=== PATIENT | female | born 1965 | race Caucasian/White ===

== ENCOUNTER → 2017-07-19 | Outpatient (CLI) | payer BC ==
--- NOTE | 2017-07-19 13:31 | MR ---
EXAMINATION TYPE: MR knee LT wo con DATE OF EXAM: 07/19/2017 1:08 PM COMPARISON: NONE HISTORY: lt knee pain TECHNIQUE: Multiplanar, multiecho imaging of the left knee is performed without IV contrast. FINDINGS: There is mild edema surrounding the knee. There is a moderate joint effusion. 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 There is grade I to II c hondromalacia involving the lateral patellar facet as well as the medial and lateral femoral condyles . The medial meniscus is unremarkable. The anterior horn of the lateral meniscus as well as a body horn junction is abnormal. There is a complex tear. This is undisplaced. The root of the anterior meniscu s appears to extend to find of the intercondylar notch and I suspect it is injured. Both the anterior and posterior cruciate ligaments are intact. Both the medial and lateral collateral ligament complexes are intact. The iliotibial band inserts nor lyubov upon Gerdy's tubercle. The popliteus tendon and muscle appear normal. There is some pseudocystic change in the notch between the tibial spines and also in the tibial metap hysis. No other osseous lesion is seen. Both the patellar and quadriceps tendons are intact. IMPRESSION: 1. CHONDROMALACIA DESCRIBED. 2. COMPLEX TEAR OF THE ANTERIOR HORN AND BODY HORN JUNCTION OF THE LATERAL MENISCUS WITH POTENTIAL IN JURY TO THE ANTERIOR ROOT OF THE MENISCUS. 3. LARGE JOINT EFFUSION.
== END | disposition home or self-care (01) ==
LOC: RADMRIMAIN 12:16
PROVIDERS: ATTEND Orthopaedic Surgery
DX: S83.272A Complex tear of lateral meniscus, current injury, left knee, initial encounter (principal); M94.262 Chondromalacia, left knee

== ENCOUNTER → 2017-07-28 | Outpatient (CLI) | payer BC ==
[2017-07-28 10:23] LABS: Basophils % (A) 1 %; CH 30.1; CHCM 32.1; Eosinophils # (A) 0.2 k/uL (0-0.7); Eosinophils % (A) 4 %; HCT 38.4 % (34.0-46.0); HDW 2.21; HGB 12.6 gm/dL (11.4-16.0); Luc # (Auto) 0.09; Luc % (Auto) 2; Lymphocytes # (A) 1.8 k/uL (1.0-4.8); Lymphocytes % (A) 31 %; MCH 30.8 pg (25.0-35.0); MCHC 32.7 g/dL (31.0-37.0); MCV 94.1 fL (80.0-100.0); Monocytes # (A) 0.2 k/uL (0-1.0); Monocytes % (A) 4 %; Neutrophils # (A) 3.5 k/uL (1.3-7.7); Neutrophils % (A) 59 %; RBC 4.08 m/uL (3.80-5.40); RDW 13.2 % (11.5-15.5); WBC 5.9 k/uL (3.8-10.6); WBC (Perox) 5.98
[2017-07-28 10:42] LABS: Potassium 4.5 mmol/L (3.5-5.1)
== END | disposition home or self-care (01) ==
LOC: LABPAT 09:36
PROVIDERS: ATTEND Orthopaedic Surgery
DX: Z01.812 Encounter for preprocedural laboratory examination (principal); M23.91 Unspecified internal derangement of right knee
CPT/HCPCS: 80051; 85025

== ENCOUNTER → 2017-10-18 | Outpatient (CLI) | payer BC | END | disposition home or self-care (01) | LOC: LABPAT 10:33 | PROVIDERS: ATTEND Orthopaedic Surgery | CPT/HCPCS: 87070 ==

== ENCOUNTER → 2020-09-19 | Outpatient (CLI) | payer MEDICARE, BC ==
[2020-09-19 15:34] VITALS: BP 136/85; PULSE 56; RESP 18
--- NOTE | 2020-09-19 16:27 | P.GSHP ---
History of Present Illness H&P Date: 09/19/20 Chief Complaint: abnormal left breast mammogram Elizabeth is a 55 year old white female seen in consultation for DR. Carter area of calcification in her left breast. She had a routine screening mammogram performed on which diagnostic left breast mammogram was recommended. No lesions of concern were noted in the right breast. The left breast she was noted to have some microcalcifications of concern for which stereotactic core biopsy was recommended. She does not feel any lumps masses or nodules of concern in either breast. She is not complaining of any breast pain. She is not complaining of any nipple discharge or skin changes. She has no history of any trauma, infection, or surgery on either breast. 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 Hypothyroidism Social History: randa: stopped smoking in 1983 alcohol: occasional drugs: none - Constitutional Constitutional: Denies chills, Denies fever - EENT Eyes: denies blurred vision, denies pain Ears: bilateral: tinnitus, deny: decreased hearing Ears, nose, mouth and throat: Reports headache, Denies sore throat - Breasts Breasts: bilateral: as per HPI - Cardiovascular Cardiovascular: Reports shortness of breath, Denies chest pain - Respiratory Respiratory: Denies cough, Denies 7 - Gastrointestinal Gastrointestinal: Reports constipation, Reports diarrhea, Denies abdominal pain, Denies nausea, Denies vomiting - Genitourinary (Female) Genitourinary: Denies dysuria, Denies hematuria - Menstruation Menstruation: Reports postmenopausal - Musculoskeletal Comment: DJD, osteoarthritis - Integumentary Integumentary: Denies pruritus, Denies rash - Neurological Neurological: Reports weakness, Denies numbness - Psychiatric Psychiatric: Reports anxiety, Reports depression - Endocrine Comment: Esme's/hypothyroid - Hematologic/Lymphatic Comment: none - Allergic/Immunologic Allergic/Immunologic: Reports as per HPI Past Medical History Past Medical History: Hyperlipidemia, Musculoskeletal Disorder Additional Past Medical History / Comment(s): TINNITIS. HX RT KNEE INJURY, ONGOING PROB. History of Any Multi-Drug Resistant Organisms: None Reported Past Surgical History: Orthopedic Surgery, Tonsillectomy, Tubal Ligation, Uterine Ablation Additional Past Surgical History / Comment(s): EXC KIDNEY STONE. UTERINE ABLATION X2. RT KNEE SCOPE X 2, LT KNEE SCOPE, TOTAL RIGHT KNEE ARTHROPLASTY Past Anesthesia/Blood Transfusion Reactions: No Reported Reaction Past Psychological History: No Psychological Hx Reported Smoking Status: Former smoker Past Alcohol Use History: Rare Additional Past Alcohol Use History / Comment(s): smoked 1-2 years <1ppd quit 1983 Past Drug Use History: None Reported - Past Family History Father Family Medical History: Cancer Medications and Allergies Home Medications Medication Instructions Recorded Confirmed Type Cholecalciferol [Vitamin D3 (25 5,000 unit PO DAILY 08/19/17 09/19/20 History Mcg = 1000 Iu)] Escitalopram [Lexapro] 20 mg PO DAILY 08/19/17 09/19/20 History Gabapentin [Neurontin] 400 mg PO TID 08/19/17 09/19/20 History Multivitamins, Thera [Multivitamin 1 tab PO DAILY 08/19/17 09/19/20 History (formulary)] Cyanocobalamin (Vitamin B-12) 1,000 mcg PO DAILY 09/16/20 09/19/20 History [Vitamin B-12] Levothyroxine Sodium [Synthroid] 100 mcg PO DAILY 09/16/20 09/19/20 History Cheney-3 Fatty Acids/Fish Oil [Fish 1 each PO DAILY 09/16/20 09/19/20 History Oil 1,000 mg Softgel] Allergies Allergy/AdvReac Type Severity Reaction Status Date / Time adhesive Allergy Rash/Hives Verified 09/16/20 10:21 Surgical - Exam Vital Signs Pulse Resp BP Pulse Ox 56 L 18 136/85 97 09/19/20 15:29 09/19/20 15:29 09/19/20 15:29 09/19/20 15:29 BMI 49.4 - General obese - Eyes normal ocular movement - ENT no hearing loss - Neck no masses, trachea midline - Respiratory normal expansion, normal respiratory effort, clear to auscultation - Cardiovascular Rhythm: regular Heart Sounds: normal: S1, S2 - Abdomen Abdomen: soft - Integumentary normal turgor - Neurologic no disoriented, no combative - Musculoskeletal normal gait, normal posture - Psychiatric oriented to time, oriented to person, oriented to place, speech is normal, memory intact Breast exam: Bra: 42D inspection: bilateral grade 3 ptosis palpation: right breast: Multiple positional exam fibrocystic changes, no dominant masses or nodules of concern Right axilla: No adenopathy of concern Left breast: Multiple positional exam fibrocystic changes, particularly attention to the central medial portion of the breast does not reveal any palpable lesion Left axilla: No adenopathy of concern Results Mammogram results reviewed Assessment and Plan Assessment: Impression: 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 Left breast stereotactic core biopsy 2. Medical management of medical conditions Risk and benefits of procedure discussed with the patient. She understands and wishes to proceed. Risks include but are not limited to bleeding, infection, reaction to the anesthetic. The lesion results were to be discordant and possible resection in the operating room may be recommended. Additionally alternatives such as watchful waiting or resection in the operating room are discussed but not recommended. Cc: Dr. Carter encounter 30 minutes, > 50% of time spent in planning and counselling
== END | disposition home or self-care (01) ==
LOC: WWCWWP 14:59
PROVIDERS: ATTEND Surgery
DX: Z53.9 Procedure and treatment not carried out, unspecified reason (principal)

== ENCOUNTER → 2020-09-25 | Day surgery (SDC) | payer BC ==
--- NOTE | 2020-09-25 08:31 | P.PCN ---
Date of Procedure: 09/25/20 Preoperative Diagnosis: Mammographic abnormality/microcalcifications of concern central medial aspect of the left breast Postoperative Diagnosis: Same Procedure(s) Performed: Stereotactic core biopsy left breast Anesthesia: local Surgeon: Archana Vora Pathology: other (Breast tissue) Condition: stable Disposition: same day Indications for Procedure: Microcalcifications of concern left breast central medial aspect Operative Findings: Radiograph of specimen reveals microcalcifications of concern present Description of Procedure: The patient is a 55-year-old white female who was noted to have microcalcifications of concern in the mid central portion of the left breast. Stereotactic core biopsy was recommended. Risks and benefits of the procedure were discussed with the patient. These include but are not limited to bleeding, infection, reaction to the anesthetic. Alternatives such as watchful waiting or resection in the operating room were discussed but not recommended. Patient understands and wishes to proceed. The patient was taken to stereotactic core biopsy wound. A perch mender film was obtained. CC from above approach was utilized. The area of concern was identified. The lesion was targeted. The breast was prepped using Betadine. 20 mL of 1% lidocaine was used to anesthetize the area of concern. A 9-gauge vacuum-assisted core rotating biopsy needle was driven to the correct coordinates. The needle was fired. Post fire film indicated needle to be in the correct location. 12 specimens were obtained. Radiograph of the specimen revealed the area of concern had been sampled. A secure marked top hat clip was left in place. The patient tolerated the procedure in stable condition. The specimen was sent to pathology. The patient will follow with Dr. Cortez next week.
[2020-09-25 08:41] VITALS: RESP 16
[2020-09-25 08:51] VITALS: BP 113/76; PULSE 54; TEMP 97.9
--- NOTE | 2020-09-25 16:02 | MM ---
EXAMINATION TYPE: MG stereo VAD BX LT DATE OF EXAM: 09/25/2020 COMPARISON: Prior mammogram 08/27/2020 CLINICAL HISTORY: Abnormal mammogram TECHNIQUE: Stereotactic guided core biopsy of left breast. FINDINGS: The procedure of stereotactic guided core biopsy was explained to the patient. Benefits, alternatives, and risks were discussed. An informed consent was then obtained. [facility]. , Dr. Diego Ponce performed the remainder of the procedure. A vacuum assisted biopsy gun was used to obtain multiple core samples. The patient tolerated the procedure well without any immediate complication. The patient was kept in the radiology department for short stay after the procedure and then discharged home in stable condition. Targeted calcifications are identified in specimen mammogram. Post biopsy mammogram shows the clip to appear in satisfactory position relative to the targeted area of concern on the preprocedure images. IMPRESSION: SUCCESSFUL, UNCOMPLICATED STEREOTACTIC GUIDED CORE BIOPSY OF AREA OF CONCERN IN THE left BREAST, FULL PATHOLOGY RESULTS TO FOLLOW. Pathology Results: High Risk LEFT BREAST, STEREOTACTIC CORE BIOPSY: Focal atypical ductal hyperplasia (ADH) in a background of fibrocystic changes including sclerosing adenosis and columnar cell change with calcifications, cysts and fibrosis. Recommendation Surgical consult of the left breast. ENRIKE
== END ==
LOC: RADMAMWWP 07:05
PROVIDERS: ATTEND Surgery
DX: N60.92 Unspecified benign mammary dysplasia of left breast (principal); N60.22 Fibroadenosis of left breast; N60.32 Fibrosclerosis of left breast
CPT/HCPCS: 88305; 19081; A4648; J2001

== ENCOUNTER → 2020-10-02 | Outpatient (CLI) | payer BC ==
[2020-10-02 15:05] VITALS: BP 143/85; PULSE 61; RESP 18; TEMP 97.9
--- NOTE | 2020-10-02 15:38 | P.PN ---
Subjective Progress Note Date: 10/02/20 Principal diagnosis: atypical hyperplasia Elizabeth is a 55 year old white female seen in consultation for DR. Carter area of calcification in her left breast. She had a routine screening mammogram performed on which diagnostic left breast mammogram was recommended. No lesions of concern were noted in the right breast. The left breast she was noted to have some microcalcifications of concern for which stereotactic core biopsy was recommended. She does not feel any lumps masses or nodules of concern in either breast. She is not complaining of any breast pain. She is not complaining of any nipple discharge or skin changes. She has no history of any trauma, infection, or surgery on either breast. She underwent a stero biopsy on 09-25-20. Her pathology reveled atypical ductal hyperplasia. This is in the upper inner aspect of the left breast. 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 Hypothyroidism Social History: randa: stopped smoking in 1983 alcohol: occasional drugs: none - Constitutional Constitutional: Denies chills, Denies fever - EENT Eyes: denies blurred vision, denies pain Ears: bilateral: tinnitus, deny: decreased hearing Ears, nose, mouth and throat: Reports headache, Denies sore throat - Breasts Breasts: bilateral: as per HPI - Cardiovascular Cardiovascular: Reports shortness of breath, Denies chest pain - Respiratory Respiratory: Denies cough, Denies 7 - Gastrointestinal Gastrointestinal: Reports constipation, Reports diarrhea, Denies abdominal pain, Denies nausea, Denies vomiting - Genitourinary (Female) Genitourinary: Denies dysuria, Denies hematuria - Menstruation Menstruation: Reports postmenopausal - Musculoskeletal Comment: DJD, osteoarthritis - Integumentary Integumentary: Denies pruritus, Denies rash - Neurological Neurological: Reports weakness, Denies numbness - Psychiatric Psychiatric: Reports anxiety, Reports depression - Endocrine Comment: Esme's/hypothyroid - Hematologic/Lymphatic Comment: none - Allergic/Immunologic Allergic/Immunologic: Reports as per HPI Objective - Vital Signs Vital signs: Vital Signs Temp 97.9 F 10/02/20 15:02 Pulse 61 10/02/20 15:02 Resp 18 10/02/20 15:02 BP 143/85 10/02/20 15:02 Pulse Ox 97 10/02/20 15:02 Intake & Output 10/01/20 10/02/20 10/02/20 18:59 06:59 18:59 Weight 120.656 kg - Exam BMI 48.7 - Constitutional General appearance: Present: obese - EENT Eyes: Present: EOMI ENT: Present: hearing grossly normal - Neck Neck: Present: normal ROM - Respiratory Respiratory: bilateral: CTA - Cardiovascular Rhythm: regular Heart sounds: normal: S1, S2 - Gastrointestinal General gastrointestinal: Present: soft - Integumentary Integumentary: Present: normal turgor - Musculoskeletal Musculoskeletal: Present: gait normal - Psychiatric Psychiatric: Present: A&O x's 3 - Additional findings Additional findings: breast exam: BRA: 42D inspection: left breast stero biopsy site clean and dry, bilateral grade 2/3 ptosis palpation: right breast: Multi-positional exam no dominant masses or nodules of concern fibrocystic changes Right axilla: No adenopathy of concern Left breast: Multi-positional exam fibrocystic changes, no dominant masses or nodules of concern Left axilla: No adenopathy of concern Assessment and Plan Assessment: Impression: 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 Needle localization excisional biopsy area of atypia left core biopsy site, possible onco-plastic tissue transfer, possible mastopexy incision CC: Dr. Carter encounter 15 minutes > 50% of time in planning and counselling
== END | disposition home or self-care (01) ==
LOC: WWCWWP 14:39
PROVIDERS: ATTEND Surgery
DX: Z53.9 Procedure and treatment not carried out, unspecified reason (principal)

== ENCOUNTER → 2020-11-27 | Outpatient (CLI) | payer MEDICARE, BC ==
[2020-11-27 20:55] LABS: T4, Free (Free Thyroxine) 1.2 ng/dL (0.80-1.80)
== END | disposition home or self-care (01) ==
LOC: LABWHC1 13:16
PROVIDERS: ATTEND Internal Medicine
DX: E06.3 Autoimmune thyroiditis (principal); E55.9 Vitamin D deficiency, unspecified
CPT/HCPCS: 36415; 82306; 84439; 84443

== ENCOUNTER → 2020-12-05 | Outpatient (CLI) | payer MEDICARE, BC ==
[2020-12-05 09:09] VITALS: BP 144/89; PULSE 58; RESP 18; TEMP 98
--- NOTE | 2020-12-05 09:24 | P.PN ---
Subjective Progress Note Date: 12/05/20 Principal diagnosis: atypical hyperplasia atypical hyperplasia Elizabeth is a 55 year old white female seen in consultation for DR. Carter regarding an area of calcification in her left breast. She had a routine screening mammogram performed on for which diagnostic left breast mammogram was recommended. No lesions of concern were noted in the right breast. The left breast she was noted to have some microcalcifications of concern for which stereotactic core biopsy was recommended. She did not feel any lumps masses or nodules of concern in either breast. She was not complaining of any breast pain. She was not complaining of any nipple discharge or skin changes. She had no history of any trauma, infection, or surgery on either breast. She underwent a stero biopsy on 09-25-20. Her pathology reveled atypical ductal hyperplasia. This is in the upper inner aspect of the left breast. 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 Hypothyroidism Social History: randa: stopped smoking in 1983 alcohol: occasional drugs: none - Constitutional Constitutional: Denies chills, Denies fever - EENT Eyes: denies blurred vision, denies pain Ears: bilateral: tinnitus, deny: decreased hearing Ears, nose, mouth and throat: Reports headache, Denies sore throat - Breasts Breasts: bilateral: as per HPI - Cardiovascular Cardiovascular: Reports shortness of breath, Denies chest pain - Respiratory Respiratory: Denies cough, - Gastrointestinal Gastrointestinal: Reports constipation, Reports diarrhea, Denies abdominal pain, Denies nausea, Denies vomiting - Genitourinary (Female) Genitourinary: Denies dysuria, Denies hematuria - Menstruation Menstruation: Reports postmenopausal - Musculoskeletal Comment: DJD, osteoarthritis - Integumentary Integumentary: Denies pruritus, Denies rash - Neurological Neurological: Reports weakness, Denies numbness - Psychiatric Psychiatric: Reports anxiety, Reports depression - Endocrine Comment: Esme's/hypothyroid - Hematologic/Lymphatic Comment: none - Allergic/Immunologic Allergic/Immunologic: Reports as per HPI Objective - Vital Signs Vital signs: Vital Signs Temp 98.0 F 12/05/20 09:07 Pulse 58 L 12/05/20 09:07 Resp 18 12/05/20 09:07 BP 144/89 12/05/20 09:07 Pulse Ox 99 12/05/20 09:07 Intake & Output 12/04/20 12/05/20 12/05/20 18:59 06:59 18:59 Weight 123.377 kg - Exam BMI 49.7 - Constitutional General appearance: Present: obese - EENT Eyes: Present: EOMI ENT: Present: hearing grossly normal - Neck Neck: Present: normal ROM - Respiratory Respiratory: bilateral: CTA - Cardiovascular Rhythm: regular Heart sounds: normal: S1, S2 - Gastrointestinal General gastrointestinal: Present: normal bowel sounds, soft - Integumentary Integumentary: Present: normal turgor - Musculoskeletal Musculoskeletal: Present: gait normal - Psychiatric Psychiatric: Present: A&O x's 3, appropriate affect, intact judgment & insight - Additional findings Additional findings: Bresaet exam: BRA: 42D inspection: bilateral grade 2/3 ptosis palpation: right breast: multipositional exam no dominant masses or nodules of concern, fibrocystic changes Right axilla: No adenopathy of concern Left breast: Multiple positional exam no dominant masses or nodules of concern Left axilla: No adenopathy of concern Assessment and Plan Assessment: Impression: DJD and back Osteoarthritis Estimated stress disorder Esme's Hypothyroidism Atypical hyperplasia on core biopsy of the left breast Plan: 1. Needle localization excisional biopsy area of atypia at the core biopsy site left breast, possible radical plastic tissue transfer, possible mastopexy incision CC: Dr. Carter Risks and benefits of the procedure discussed with the patient and she wishes to proceed risk include but are not limited to bleeding, infection, reaction to the anesthetic. There is also a risk that the area of concern would not be adequately sampled and this will need to be repeated as the localization needle could move. encounter 15 minutes, > 50% of time in planning and counselling
== END | disposition home or self-care (01) ==
LOC: WWCWWP 08:57
PROVIDERS: ATTEND Surgery
DX: Z53.9 Procedure and treatment not carried out, unspecified reason (principal)

== ENCOUNTER 2020-12-30 09:19 | Day surgery (SDC) | payer MEDICARE, BC ==
[2020-12-26 09:42] VITALS: BMI 50.3
[~2020-12-30 09:19] MED LIST: DEXAMETHASONE SOD PHOSPHATE 4 MG/ML 1 ML VIAL IV ONE; HEPARIN SODIUM,PORCINE 5,000 UNIT/ML 1 ML VIAL SQ PRN; HYDROmorphone 0.5 MG/0.5 ML SYRINGE IVP PRN; LACTATED RINGERS 1,000 ML IV SCH; MIDAZOLAM 2 MG/2 ML VIAL IV PRN; ONDANSETRON 4 MG/2 ML VIAL IVP ONE; Pre Op ABX Message 1 EACH MISC MISCELLANE ONE; SCOPOLAMINE 1.5MG/72HR PATCH TRANSDERM ONE
[2020-12-30] MEDS ORDERED: ALPRAZolam 0.5 MG TAB ONE (09:59)
[2020-12-30] MEDS ORDERED: LIDOCAINE 1% (10MG/ML) FOR IV START INTRADERMA ONE (10:20)
[2020-12-30 10:26] VITALS: RESP 16
[2020-12-30] MEDS ORDERED: LIDOCAINE 1% INJ 10MG/ML (20 ML MDV) SQ ONE ×4 (11:08→13:08)
[2020-12-30] MEDS ORDERED: PROPOFOL 10 MG/ML 20 ML VIAL IV ONE (11:46)
[2020-12-30] MEDS ORDERED: fentaNYL (PF) 50 MCG/ML 2 ML AMP ONE (11:46)
[2020-12-30] MEDS ORDERED: ALBUTEROL HFA INHALER INHALATION ONE (11:46)
[2020-12-30] MEDS ORDERED: SUCCINYLCHOLINE CHLORIDE 100 MG/5 ML SYR IV ONE (11:46)
[2020-12-30] MEDS ORDERED: LIDOCAINE 1% INJ 10MG/ML (20 ML MDV) ONE (11:46)
[2020-12-30] MEDS ORDERED: MIDAZOLAM 2 MG/2 ML VIAL ONE (11:46)
--- NOTE | 2020-12-30 12:56 | MM ---
EXAMINATION TYPE: MG pre op needle loc LT, MG surgical specimen LT DATE OF EXAM: 12/30/2020 COMPARISON: Stereo biopsy September 25, 2020 and older studies. CLINICAL HISTORY: Focal ADH on biopsy September 25, 2020 TECHNIQUE: Needle localization with wire placement and surgical excision of area of concern in the le ft breast. FINDINGS: The procedure of needle localization with wire placement and than surgical excision was exp lained to the patient. Benefits, alternatives, and risks were discussed. An informed consent was th en obtained. The shortest pathway for procedure was chosen. Shortest pathway was medial approach. The overlying s kin was prepped and draped in usual sterile fashion. Lidocaine was used as anesthetic into the skin a nd subcutaneous tissue up to the level of area of concern. A 7 cm needle was used. It was placed vi a a medial approach under mammographic guidance. Subsequent 90 degrees mammogram show the needle to be in satisfactory position relative to the targeted area. At this point, wire was placed and the ne edle was withdrawn. The wire was fixed to patient's skin. Images were marked for surgeon. The patient tolerated the procedure well without any immediate complication. The patient was kept in the radiology department for short stay after the procedure and then taken to surgery for surgical e xcision. Targeted biopsy clip and wire are identified in specimen mammogram. The patient was kept in hospital for short stay after the procedure and then discharged home in stable condition. IMPRESSION: Successful, uncomplicated needle localization with wire placement and surgical excision o f targeted biopsy clip in the left breast, full pathology results to follow.
--- NOTE | 2020-12-30 13:20 | P.OP ---
Date of Procedure: 12/30/20 Preoperative Diagnosis: atypia on core biopsy of left breast Postoperative Diagnosis: same Procedure(s) Performed: needle localization excisional biopsy left breast area of atypia, mastopexy, onco-plastic tissue transfer 47 cm Anesthesia: YOHANAA Surgeon: Archana Vora Estimated Blood Loss (ml): 8 IV fluids (ml): 400 Pathology: other (breast tissue) Condition: stable Disposition: same day Indications for Procedure: atypia on core biopsy of left breast Operative Findings: dense breast tissue Description of Procedure: This is a 55-year-old white female who was noted to have atypia on core biopsy of her left breast. Needle localization and excision was recommended. Approach to this was a mastopexy incision. Preoperatively the patient was taken to the radiology department where needle localization of an area of concern was performed. The patient was then brought to the preoperative area where skin markings were placed for a mastopexy incision. The apex of the crescent was approximately 2-1/2 cm above the areolar. This was at the meridian. The patient was taken to the operating room and following induction of anesthesia the left breast was prepped and draped in a sterile fashion. The skin markings for the crescent mastopexy were again evaluated. The skin in this area was then de-epithelialized. The breast tissue was entered through this crescent. The dissection was performed in the plane between the subcutaneous tissue and the breast tissue to the area of the localizing needle. This was brought into the wound. The tissue was grasped using an Allis clamp. Ci rcumferential resection of the tissue was performed around the needle. The specimen was painted for orientation. A radiograph revealed the area of concern had been removed. Superior and inferior pillars of tissue were dissected and mobilized. Superiorly the tissue was 4 cm x 2 cm. Inferiorly the tissue was 5 cm x 3 cm. The cavity where the lesion was resected was 4 cm x 6 cm. This was a total of 47 cm2 of mobilization. The wound was examined for hemostasis. After this was secured titanium clips were placed. The superior and inferior pillars were brought together and secured using 3-0 Vicryl suture. The subcutaneous tissues were closed using 3-0 Vicryl suture. The skin was closed using a 4-0 Monocryl. Steri-Strips were applied. The patient tolerated the procedure in stable condition. All instrument and sponge counts were correct at the end of the case.
--- NOTE | 2020-12-30 13:22 | P.DS ---
Providers Attending physician: Archana Vora Primary care physician: Alpesh Carter Plan - Discharge Summary Discharge Rx Participant: Yes New Discharge Prescriptions: No Action Gabapentin [Neurontin] 400 mg PO TID Escitalopram [Lexapro] 20 mg PO HS Cholecalciferol [Vitamin D3 (25 Mcg = 1000 Iu)] 5,000 unit PO DAILY Multivitamins, Thera [Multivitamin (formulary)] 1 tab PO DAILY Cyanocobalamin (Vitamin B-12) [Vitamin B-12] 1,000 mcg PO DAILY [place]-3 Fatty Acids/Fish Oil [Fish Oil 1,000 mg Softgel] 1 each PO DAILY Levothyroxine Sodium [Unithroid] 112 mcg PO QAM Discharge Medication List Cholecalciferol [Vitamin D3 (25 Mcg = 1000 Iu)] 5,000 unit PO DAILY 08/19/17 [History] Escitalopram [Lexapro] 20 mg PO HS 08/19/17 [History] Gabapentin [Neurontin] 400 mg PO TID 08/19/17 [History] Multivitamins, Thera [Multivitamin (formulary)] 1 tab PO DAILY 08/19/17 [History] Cyanocobalamin (Vitamin B-12) [Vitamin B-12] 1,000 mcg PO DAILY 09/16/20 [History] [place]-3 Fatty Acids/Fish Oil [Fish Oil 1,000 mg Softgel] 1 each PO DAILY 09/16/20 [History] Levothyroxine Sodium [Unithroid] 112 mcg PO QAM 12/26/20 [History] Follow up Appointment(s)/Referral(s): Archana Vora MD [STAFF PHYSICIAN] - 1 Week Activity/Diet/Wound Care/Special Instructions: do not drive for 24 hours or if taking narcotic pain medication may shower after 48 hours wear bra at all times Discharge Disposition: HOME SELF-CARE
[2020-12-30 13:42] VITALS: TEMP 97
[2020-12-30] MEDS ORDERED: HYDROcodone/APAP 5-325MG 1 EACH TAB PO ONE (14:34)
[2020-12-30] MEDS ORDERED: HYDROcodone/APAP 5-325MG 1 EACH TAB ONE (14:35)
[2020-12-30 15:01] VITALS: BP 136/80; PULSE 66
== END 2020-12-30 15:11 | disposition home or self-care (01) ==
LOC: RADMAMWWP 09:19
PROVIDERS: ATTEND Surgery
DX: N60.12 Diffuse cystic mastopathy of left breast (principal); N62 Hypertrophy of breast; M19.90 Unspecified osteoarthritis, unspecified site; E03.9 Hypothyroidism, unspecified; F43.10 Post-traumatic stress disorder, unspecified; E06.3 Autoimmune thyroiditis; E66.01 Morbid (severe) obesity due to excess calories; Z79.890 Hormone replacement therapy; Z79.899 Other long term (current) drug therapy; Z87.891 Personal history of nicotine dependence; Z80.0 Family history of malignant neoplasm of digestive organs; Z98.51 Tubal ligation status; Z87.442 Personal history of urinary calculi; Z96.651 Presence of right artificial knee joint; Z98.890 Other specified postprocedural states; Z91.048 Other nonmedicinal substance allergy status; Z68.42 Body mass index [BMI] 45.0-49.9, adult
CPT/HCPCS: 19125; 88305; 88307; 76098; 19281; J2250; J1644; J1100; J2405; J2001; J3010; J0330; J2704

== ENCOUNTER → 2021-01-08 | Outpatient (CLI) | payer BC ==
[2021-01-08 17:01] VITALS: BP 139/86; PULSE 77; RESP 18; TEMP 98
--- NOTE | 2021-01-08 17:32 | P.PN ---
Progress Note - Text Progress Note Date: 01/08/21 Elizabeth is a 55 year old white female status post left breast needle localization biopsy on 12-30-20. Her pathology was benign. She has no complaints related to the surgery. Pathology revealed hemorrhagic biopsy site change with focal fibrocystic change, columnar cell change, focal microcalcification, and usual ductal hyperplasia. Negative for in situ or invasive cancer. Physical examination: Lungs: Clear Heart: Regular rate and rhythm Incision: Clean and dry Impression/plan: 1. Repeat left breast mammogram in 6 months with physician examined that time 2. Patient has asymmetry related to the left breast surgery which was done to rule out malignancy and would like to have asymmetry procedure performed on the right breast. Cc: Dr. Carter
== END | disposition home or self-care (01) ==
LOC: WWCWWP 16:58
PROVIDERS: ATTEND Surgery
DX: N60.12 Diffuse cystic mastopathy of left breast (principal); Z98.890 Other specified postprocedural states; R92.0 Mammographic microcalcification found on diagnostic imaging of breast; N62 Hypertrophy of breast

== ENCOUNTER → 2021-03-27 | Outpatient (CLI) | payer MEDICARE, BC ==
[2021-03-27 23:03] LABS: T4, Free (Free Thyroxine) 1.7 ng/dL (0.80-1.80)
== END | disposition home or self-care (01) ==
LOC: LABWHC1 10:48
PROVIDERS: ATTEND Internal Medicine
DX: E06.3 Autoimmune thyroiditis (principal)
CPT/HCPCS: 36415; 84439; 84443

== ENCOUNTER → 2021-07-08 | Outpatient (CLI) | payer BC ==
--- NOTE | 2021-07-08 09:37 | MM ---
Reason for exam: history of benign breast biopsy. Last mammogram was performed 10 months ago. History: Patient has history of high-risk lesion on a previous biopsy at age 55. Benign MG pre op needle loc LT of the left breast, December 30, 2020. High risk MG stereo VAD BX LT of the left breast, September 25, 2020. Physical Findings: Nurse did not find any significant physical abnormalities on exam. MG 3D Diag Mammo W/Cad LT CC and MLO view(s) were taken of the left breast. Prior study comparison: August 27, 2020, left breast mammogram, performed at [facility]. August 22, 2020, mammogram, performed at [facility]. May 31, 2018, mammogram, performed at [facility]. There are scattered fibroglandular densities. Post operative changes left breast. No significant new findings when compared with previous films. These results were verbally communicated with the patient and result sheet given to the patient on 07/08/21. ASSESSMENT: Benign, BI-RAD 2 RECOMMENDATION: Routine screening mammogram of both breasts in 3 months. Back on schedule for August 2021.
== END | disposition home or self-care (01) ==
LOC: RADMAMWWP 07:41
PROVIDERS: ATTEND Surgery
DX: R92.8 Other abnormal and inconclusive findings on diagnostic imaging of breast (principal)
CPT/HCPCS: 77061; 77065

== ENCOUNTER → 2021-07-16 | Outpatient (CLI) | payer BC ==
[2021-07-16 10:57] VITALS: BP 132/86; PULSE 60; RESP 18; TEMP 98
--- NOTE | 2021-07-16 11:18 | P.PN ---
Subjective Progress Note Date: 07/16/21 Principal diagnosis: Fibrocystic breast changes/atypical hyperplasia left breast atypical hyperplasia status post biopsy on 12-30-20 Elizabeth is a 55 year old white female seen in consultation for DR. Carter regarding an area of calcification in her left breast. She had a routine s creening mammogram performed on for which diagnostic left breast mammogram was recommended. No lesions of concern were noted in the right breast. The left breast she was noted to have some microcalcifications of concern for which stereotactic core biopsy was recommended. She did not feel any lumps masses or nodules of concern in either breast. She was not complaining of any breast pain. She was not complaining of any nipple discharge or skin changes. She had no history of any trauma, infection, or surgery on either breast. She underwent a stero biopsy on 09-25-20. Her pathology reveled atypical ductal hyperplasia. This is in the upper inner aspect of the left breast. She underwent a needle local excisional biopsy of the left breast and 2921. This was negative for in situ or invasive carcinoma. The [place] [address]. This was felt to be benign BIRADS 2. She does not feel any lumps masses or nodules of concern in either breast. 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 Hypothyroidism Social History: nicotene: stopped smoking in 1983 alcohol: occasional drugs: none - Constitutional Constitutional: Denies chills, Denies fever - EENT Eyes: denies blurred vision, denies pain Ears: bilateral: tinnitus, deny: decreased hearing Ears, nose, mouth and throat: Reports headache, Denies sore throat - Breasts Breasts: bilateral: as per HPI - Cardiovascular Cardiovascular: Reports shortness of breath, Denies chest pain - Respiratory Respiratory: Denies cough, - Gastrointestinal Gastrointestinal: Reports constipation, Reports diarrhea, Denies abdominal pain, Denies nausea, Denies vomiting - Genitourinary (Female) Genitourinary: Denies dysuria, Denies hematuria - Menstruation Menstruation: Reports postmenopausal - Musculoskeletal Comment: DJD, osteoarthritis - Integumentary Integumentary: Denies pruritus, Denies rash - Neurological Neurological: Reports weakness, Denies numbness - Psychiatric Psychiatric: Reports anxiety, Reports depression - Endocrine Comment: Esme's/hypothyroid - Hematologic/Lymphatic Comment: none - Allergic/Immunologic Allergic/Immunologic: Reports as per HPI Objective - Vital Signs Vital signs: Vital Signs Temp 98.0 F 07/16/21 10:53 Pulse 60 07/16/21 10:53 Resp 18 07/16/21 10:53 BP 132/86 07/16/21 10:53 Pulse Ox 95 07/16/21 10:53 Intake & Output 07/15/21 07/16/21 07/16/21 18:59 06:59 18:59 Weight 122.47 kg - Exam BMI 49.4 - Constitutional General appearance: Present: cooperative - EENT Eyes: Present: EOMI ENT: Present: hearing grossly normal - Neck Neck: Present: normal ROM - Respiratory Respiratory: bilateral: CTA - Cardiovascular Rhythm: regular Heart sounds: normal: S1, S2 - Integumentary Integumentary: Present: normal turgor - Musculoskeletal Musculoskeletal: Present: gait normal - Psychiatric Psychiatric: Present: A&O x's 3, appropriate affect, intact judgment & insight - Additional findings Additional findings: Breast Exam: BRA: 42 C Inspection: Well-healed scar left breast from prior surgery Palpation: Right breast: Multiple positional exam fibrocystic changes no dominant masses or nodules of concern Right axilla: No adenopathy of concern left breast: Multiple positional exam fibrocystic changes no dominant masses or nodules of concern/well-healed scar from prior surgery Left axilla: No adenopathy of concern Assessment and Plan Assessment: Impression: 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 Patient to have right breast mammogram in August/she will have repeat bilateral mammogram in 1 year to both breasts on the same schedule 2. follow up after mammogram CC: Dr. Carter
== END | disposition home or self-care (01) ==
LOC: WWCWWP 10:47
PROVIDERS: ATTEND Surgery
DX: Z53.9 Procedure and treatment not carried out, unspecified reason (principal)

== ENCOUNTER → 2021-08-25 | Outpatient (CLI) | payer MEDICARE, BC ==
--- NOTE | 2021-08-25 12:36 | MM ---
Reason for exam: screening (asymptomatic). Last mammogram was performed 2 months ago. History: Patient has history of high-risk lesion on a previous biopsy at age 55. Benign MG pre op needle loc LT of the left breast, December 30, 2020. High risk MG stereo VAD BX LT of the left breast, September 25, 2020. Physical Findings: A clinical breast exam by your physician is recommended on an annual basis and results should be correlated with mammographic findings. MG 3D Screening Mammo W/Cad Bilateral CC and MLO view(s) were taken. Prior study comparison: August 22, 2020, mammogram, performed at [facility]. May 31, 2018, mammogram, performed at [facility]. There are scattered fibroglandular densities. Finding #1: Stable architectural distortion in the inner quadrant, middle position of the left breast consistent with known excision changes. Finding #2: There are typically benign round calcifications in the right breast. There is a chronic nodularity in the right breast. There is no new dominant lesion. ASSESSMENT: Benign, BI-RAD 2 RECOMMENDATION: Routine screening mammogram of both breasts in 1 year.
== END | disposition home or self-care (01) ==
LOC: RADMAMWWP 08:27
PROVIDERS: ATTEND Surgery
DX: Z12.31 Encounter for screening mammogram for malignant neoplasm of breast (principal)
CPT/HCPCS: 77063; 77067

== ENCOUNTER → 2021-09-03 | Outpatient (CLI) | payer BC ==
--- NOTE | 2021-09-03 09:06 | P.PN ---
Subjective Progress Note Date: 09/03/21 Principal diagnosis: atypical hyperplasia of the left breast atypical hyperplasia status post biopsy on 12-30-20 Elizabeth is a 55 year old white female seen in consultation for DR. Carter regarding an area of calcification in her left breast. She [place] a [place] [address] for which diagnostic left breast mammogram was recommended. No lesions of concern were noted in the right breast. The left breast she was noted to have some microcalcifications of concern for which stereotactic core biopsy was recommended. She did not feel any lumps masses or nodules of concern in either breast. She was not complaining of any breast pain. She was not complaining of any nipple discharge or skin changes. She had no history of any trauma, infection, or surgery on either breast. She underwent a stero biopsy on 09-25-20. Her pathology reveled atypical ductal hyperplasia. This is in the upper inner aspect of the left breast. She underwent a needle local excisional biopsy of the left breast on 2921. This was negative for in situ or invasive carcinoma. The patient subsequently [place] [address]. This was felt to be benign BIRADS 2. She does not feel any lumps masses or nodules of concern in either breast. [place] [address] this is benign BIRADS 2. She is recommended to have bilateral mammogram in 1 year. The patient was recently seen and a breast examination was performed 07-16-21. The patient does not feel any lumps masses or nodules of concern in either breast. She has declined breast examination today she just had one done recently. The patient will call us if she has any concerns. 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 Hypothyroidism Social History: randa: stopped smoking in 1983 alcohol: occasional drugs: none - Constitutional Constitutional: Denies chills, Denies fever - EENT Eyes: denies blurred vision, denies pain Ears: bilateral: tinnitus, deny: decreased hearing Ears, nose, mouth and throat: Reports headache, Denies sore throat - Breasts Breasts: bilateral: as per HPI - Cardiovascular Cardiovascular: Reports shortness of breath, Denies chest pain - Respiratory Respiratory: Denies cough, - Gastrointestinal Gastrointestinal: Reports constipation, Reports diarrhea, Denies abdominal pain, Denies nausea, Denies vomiting - Genitourinary (Female) Genitourinary: Denies dysuria, Denies hematuria - Menstruation Menstruation: Reports postmenopausal - Musculoskeletal Comment: DJD, osteoarthritis - Integumentary Integumentary: Denies pruritus, Denies rash - Neurological Neurological: Reports weakness, Denies numbness - Psychiatric Psychiatric: Reports anxiety, Reports depression - Endocrine Comment: Esme's/hypothyroid - Hematologic/Lymphatic Comment: none - Allergic/Immunologic Allergic/Immunologic: Reports as per HPI Assessment and Plan Assessment: Impression: DJD and back Osteoarthritis Posterior manic stress disorder Esme's Hypothyroidism Fibrocystic breast changes Plan: 1. Repeat bilateral mammogram in 1 year with physician exam at that time 2. Follow up sooner if any questions or concerns CC: Dr. Carter
[2021-09-03 09:07] VITALS: BP 116/83; PULSE 64; RESP 12; TEMP 97.9
== END | disposition home or self-care (01) ==
LOC: WWCWWP 08:57
PROVIDERS: ATTEND Surgery
DX: Z53.9 Procedure and treatment not carried out, unspecified reason (principal)

== ENCOUNTER → 2021-09-17 | Outpatient (CLI) | payer MEDICARE, BC ==
[2021-09-17 23:55] LABS: C Reactive Protein 0.8 mg/dL (0.00-0.80); T4, Free (Free Thyroxine) 1.13 ng/dL (0.800-1.800)
== END | disposition home or self-care (01) ==
LOC: LABWHC1 11:27
PROVIDERS: ATTEND Orthopaedic Surgery
DX: M25.561 Pain in right knee (principal); M25.562 Pain in left knee; M17.12 Unilateral primary osteoarthritis, left knee; Z96.651 Presence of right artificial knee joint
CPT/HCPCS: 36415; 84439; 84443; 85379; 85652; 86140

== ENCOUNTER → 2021-11-19 | Outpatient (CLI) | payer MEDICARE, BC ==
--- NOTE | 2021-11-20 08:33 | US ---
EXAMINATION TYPE: US liver DATE OF EXAM: 11/19/2021 COMPARISON: NONE CLINICAL HISTORY: R74.8 Abnormal levels. EXAM MEASUREMENTS: Liver Length: 15.0 cm Gallbladder Wall: 0.2 cm CBD: 0.3 cm Right Kidney: 11.1 x 4.9 x 5.3 cm Difficult and limited study due to patient body habitus Pancreas: limited by overlying midline bowel gas Liver: mild heterogeneous Gallbladder: cholelithiasis Evidence for sonographic Gonzales's sign: no CBD: visualized portions wnl, limited by overlying bowel gas Right Kidney: wnl IMPRESSION: 1. Uncomplicated cholelithiasis. 2. Probable fatty liver.
== END | disposition home or self-care (01) ==
LOC: RADUSWWP 16:20
PROVIDERS: ATTEND Family Medicine
DX: K80.20 Calculus of gallbladder without cholecystitis without obstruction (principal)
CPT/HCPCS: 76705

== ENCOUNTER → 2022-04-27 | Outpatient (CLI) | payer MEDICARE, BC ==
[2022-04-27 22:54] LABS: T4, Free (Free Thyroxine) 1.1 ng/dL (0.800-1.800)
== END | disposition home or self-care (01) ==
LOC: LABWHC1 16:15
PROVIDERS: ATTEND Internal Medicine
DX: E06.3 Autoimmune thyroiditis (principal)
CPT/HCPCS: 36415; 84439; 84443

== ENCOUNTER → 2022-08-31 | Outpatient (CLI) | payer MEDICARE, BC ==
--- NOTE | 2022-09-01 09:22 | MM ---
Reason for Exam: Screening (asymptomatic). Last screening mammogram was performed 12 month(s) ago. Patient History: Menarche at age 11. First Full-Term at age 19. Postmenopausal. 12/30/2020, Benign Core Biopsy on the left side. 09/25/2020, High risk Core Biopsy on the left side. Risk Values: Elizabeth 5 year model risk: 1.8%. NCI Lifetime model risk: 10.2%. Prior Study Comparison: 08/27/2020 Left Screening Mammogram, [facility]. 07/08/2021 Left Diagnostic Mammogram, [facility]. 08/25/2021 Bilateral Screening Mammogram, [facility]. Tissue Density: There are scattered fibroglandular densities. Findings: Analyzed By CAD. There is no suspicious group of microcalcifications or new suspicious mass in either breast. Postlumpectomy changes on the left suggested. Benign calcifications noted. Overall Assessment: Benign, BI-RAD 2 Management: Screening Mammogram of both breasts in 1 year. A clinical breast exam by your physician is recommended on an annual basis and results should be correlated with mammographic findings. Electronically signed and approved by: Mark Ballard M.D. Radiologis
== END ==
LOC: RADMAMWWP 08:56
PROVIDERS: ATTEND Surgery
DX: Z12.31 Encounter for screening mammogram for malignant neoplasm of breast (principal)
CPT/HCPCS: 77063; 77067

== ENCOUNTER → 2022-09-09 | Outpatient (CLI) | payer MEDICARE, BC ==
[2022-09-09 10:17] VITALS: BP 130/81; PULSE 60; RESP 18; TEMP 97.8
--- NOTE | 2022-09-09 10:38 | P.PN ---
Subjective Progress Note Date: 09/09/22 Principal diagnosis: fibrocystic breast changes atypical hyperplasia status post left breast biopsy on 12-30-20 Elizabeth is a 57 year old white female status post bilateral mammogram on 08-31 which was benign BIRAD 2. She is status post a stero biopsy of a left breast lesion wich was atypical hyperplasia. She had an open biopsy on 12-30-20 which was benign. Does not feel any lumps masses or nodules of concern in either breast. 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 PTSD Esme's Hypothyroidism left wrist carpel tunnel Social History: randa: stopped smoking in 1983 alcohol: occasional drugs: none - Constitutional Constitutional: Denies chills, Denies fever - EENT Eyes: denies blurred vision, denies pain Ears: bilateral: tinnitus, deny: decreased hearing Ears, nose, mouth and throat: Reports headache, Denies sore throat - Breasts Breasts: bilateral: as per HPI - Cardiovascular Cardiovascular: Reports shortness of breath, Denies chest pain - Respiratory Respiratory: Denies cough, - Gastrointestinal Gastrointestinal: Reports constipation, Reports diarrhea, Denies abdominal pain, Denies nausea, Denies vomiting - Genitourinary (Female) Genitourinary: Denies dysuria, Denies hematuria - Menstruation Menstruation: Reports postmenopausal - Musculoskeletal Comment: DJD, osteoarthritis - Integumentary Integumentary: Denies pruritus, Denies rash - Neurological Neurological: Reports weakness, Denies numbness - Psychiatric Psychiatric: Reports anxiety, Reports depression - Endocrine Comment: Esme's/hypothyroid - Hematologic/Lymphatic Comment: none - Allergic/Immunologic Allergic/Immunologic: Reports as per HPI Objective - Vital Signs Vital signs: Vital Signs Temp 97.8 F 09/09/22 10:13 Pulse 60 09/09/22 10:13 Resp 18 09/09/22 10:13 BP 130/81 09/09/22 10:13 Pulse Ox 97 09/09/22 10:13 FiO2 Intake & Output 09/08/22 09/09/22 09/09/22 18:59 06:59 18:59 Weight 124.738 kg - Constitutional General appearance: Present: cooperative - EENT Eyes: Present: EOMI ENT: Present: hearing grossly normal - Neck Neck: Present: normal ROM - Respiratory Respiratory: bilateral: CTA - Cardiovascular Rhythm: regular Heart sounds: normal: S1, S2 - Gastrointestinal General gastrointestinal: Present: soft - Integumentary Integumentary: Present: normal turgor - Musculoskeletal Musculoskeletal: Present: gait normal - Psychiatric Psychiatric: Present: A&O x's 3, appropriate affect - Additional findings Additional findings: Breast Exam: BRA: 42D inspection: bilateral grade 3 ptosis palpation: right breast: Multi-positional exam fibrocystic changes no dominant masses or nodules of concern Right axilla: No adenopathy of concern Left breast: Multiple positional exam fibrocystic changes no dominant masses or nodules of concern, well-healed scar from prior biopsy Left axilla: No adenopathy of concern Assessment and Plan Assessment: Impression: Prior history of atypical hyperplasia left breast/recent bilateral mammogram benign BIRADS 2 Plan: Bilateral mammogram in 1 year with physician exam at that time CC: Dr. Carter
== END | disposition home or self-care (01) ==
LOC: WWCWWP 09:22
PROVIDERS: ATTEND Surgery
DX: Z53.9 Procedure and treatment not carried out, unspecified reason (principal)

== ENCOUNTER → 2023-09-08 | Outpatient (CLI) | payer MEDICARE, BC ==
--- NOTE | 2023-09-08 09:46 | P.PN ---
Subjective Progress Note Date: 09/08/23 fibrocystic breast changes atypical hyperplasia status post left breast biopsy on 12-30-20 Elizabeth is a 58 year old white female status post bilateral mammogram on 09-01-23 which was benign BIRAD 2. She is status post a stero biopsy of a left breast lesion which was atypical hyperplasia. She had an open biopsy on 12-30-20 which was benign. Does not feel any lumps masses or nodules of concern in either breast. She is not complaining of any nipple discharge or skin changes. Risk analysis: 5 year risk: 1.9% Lifetime risk 10% We have talked about the fact she had a high risk biopsy in the past and she is not interested in chemo prevention at this time. Caffeine: minimal nicotine: Stopped in 1983, used to smoke< PPD/for 3 years chocolate: occasional Family History: paternal grandmother: female cancer, and colon cancer father: colorectal, and pancreatic cancer paternal cousin: female cancer Hormonal History: menarche: 12 miscarriage:1, breast fed: yes, age at first : 19 menopause: ablation in her 40's unsure of menopause BCP: none hormones: none Surgical history: Tubal ligation Kidney stones removed Tonsillectomy Uterine ablation 2 Right knee replacement Left knee arthroscopic exam left breast biopsy left carpel tunnel surgery Medical History: 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 PTSD Esme's Hypothyroidism Social History: randa: stopped smoking in 1983 alcohol: occasional drugs: none - Constitutional Constitutional: Denies chills, Denies fever - EENT Eyes: denies blurred vision, denies pain Ears: bilateral: tinnitus, deny: decreased hearing Ears, nose, mouth and throat: Reports headache, Denies sore throat - Breasts Breasts: bilateral: as per HPI - Cardiovascular Cardiovascular: Reports shortness of breath, Denies chest pain - Respiratory Respiratory: Denies cough, - Gastrointestinal Gastrointestinal: Reports constipation, Reports diarrhea, Denies abdominal pain, Denies nausea, Denies vomiting - Genitourinary (Female) Genitourinary: Denies dysuria, Denies hematuria - Menstruation Menstruation: Reports postmenopausal - Musculoskeletal Comment: DJD, osteoarthritis - Integumentary Integumentary: Denies pruritus, Denies rash - Neurological Neurological: Reports weakness, Denies numbness - Psychiatric Psychiatric: Reports anxiety, Reports depression - Endocrine Comment: Esme's/hypothyroid - Hematologic/Lymphatic Comment: none - Allergic/Immunologic Allergic/Immunologic: Reports as per HPI Objective - Constitutional General appearance: Present: cooperative - EENT Eyes: Present: EOMI ENT: Present: hearing grossly normal - Neck Neck: Present: normal ROM - Respiratory Respiratory: bilateral: CTA - Cardiovascular Rhythm: regular Heart sounds: normal: S1, S2 - Integumentary Integumentary: Present: normal turgor - Musculoskeletal Musculoskeletal: Present: gait normal - Psychiatric Psychiatric: Present: A&O x's 3, appropriate affect, intact judgment & insight - Additional findings Additional findings: Breast Exam: BRA: 42D inspection: bilateral grade 3 ptosis palpation: right breast: Multi-positional exam fibrocystic changes no dominant masses or nodules of concern Right axilla: No adenopathy of concern Left breast: Multiple positional exam fibrocystic changes no dominant masses or nodules of concern, well-healed scar from prior biopsy Left axilla: No adenopathy of concern Assessment and Plan Assessment: Impression: Prior history of atypical hyperplasia left breast/recent bilateral mammogram 09-01-23 benign BIRADS 2 Plan: Bilateral mammogram in 1 year with physician exam at that time The patient will follow-up sooner any questions or concerns CC: Dr. Carter
== END ==
LOC: WWCWWP 09:33
PROVIDERS: ATTEND Surgery
DX: N60.89 Other benign mammary dysplasias of unspecified breast (principal); E06.3 Autoimmune thyroiditis; M19.90 Unspecified osteoarthritis, unspecified site; F43.10 Post-traumatic stress disorder, unspecified; Z87.891 Personal history of nicotine dependence; Z91.048 Other nonmedicinal substance allergy status; Z88.8 Allergy status to other drugs, medicaments and biological substances

== ENCOUNTER → 2024-02-24 | Outpatient (CLI) | payer MEDICARE, BC ==
--- NOTE | 2024-02-24 13:58 | CT ---
EXAMINATION TYPE: CT sinus wo con DATE OF EXAM: 02/24/2024 COMPARISON: HISTORY: dizziness CT DLP: 569 mGycm CONTRAST: None The paranasal sinuses are examined in the axial plane at 2 mm thick sections. Reconstructed images i n the coronal plane were obtained. There is dental amalgam scatter artifact The maxillary sinuses are clear. The ethmoid air cells are clear. The sphenoid sinuses are clear. The frontal sinuses are clear. The septum is evaluated. There is septal deviation to the left. Left septal spurring is present.. The ostiomeatal units are patent. Petrous ridges appear intact. Internal auditory canals as visualized are normal. No obvious cerebella r pontine angle masses are evident. Mastoid air cells are clear. Middle ears are clear. Incus and mal leus appear unremarkable. Semicircular canals are normal. External auditory canals are unremarkable IMPRESSION: 1. No acute or chronic sinus changes 2. No suspicious abnormality to account for vertigo
== END | disposition home or self-care (01) ==
LOC: RADCTMAIN 12:26
PROVIDERS: ATTEND Family Medicine
DX: R42 Dizziness and giddiness (principal)
CPT/HCPCS: 70486

== ENCOUNTER 2024-04-16 09:40 | Emergency (ER) | payer MEDICARE, BC ==
--- NOTE | 2024-04-16 10:08 | ED ---
General Adult HPI - General Chief complaint: Abdominal Pain Stated complaint: R Abd Pain Time Seen by Provider: 04/16/24 09:45 Source: patient, RN notes reviewed, old records reviewed Mode of arrival: ambulatory Limitations: no limitations - History of Present Illness Initial comments: 59-year-old female presenting with right sided abdominal pain, right flank pain, history of kidney stones in the remote past. Pain began suddenly this morning around 6 AM. There is associated nausea without vomiting. No change in bowels. No dysuria or hematuria noticed. Patient is otherwise quite healthy. No fever. - Related Data Home Medications Medication Instructions Recorded Confirmed Cholecalciferol [Vitamin D3 (25 5,000 unit PO DAILY 08/19/17 09/09/22 Mcg = 1000 Iu)] Escitalopram [Lexapro] 20 mg PO HS 08/19/17 09/09/22 Multivitamins, Thera [Multivitamin 1 tab PO DAILY 08/19/17 09/09/22 (formulary)] Levothyroxine Sodium [Unithroid] 112 mcg PO QAM 12/26/20 09/09/22 Previous Rx's Medication Instructions Recorded HYDROcodone/APAP 5-325MG [[place] 1 tab PO Q6HR PRN #12 tab 04/16/24 5-325] Ibuprofen [Motrin] 600 mg PO Q8HR PRN #24 tab 04/16/24 Tamsulosin [Flomax] 0.4 mg PO DAILY #7 cap 04/16/24 Allergies Allergy/AdvReac Type Severity Reaction Status Date / Time adhesive Allergy Rash/Hives Verified 09/09/22 10:12 silicone AdvReac Itching Verified 09/09/22 10:12 Review of Systems ROS Statement: Those systems with pertinent positive or pertinent negative responses have been documented in the HPI. ROS Other: All systems not noted in ROS Statement are negative. Past Medical History Past Medical History: Hyperlipidemia, Musculoskeletal Disorder, Osteoarthritis (OA), Thyroid Disorder Additional Past Medical History / Comment(s): TINNITIS. PHI DISORDER HX RT KNEE INJURY WITH ONGOING PROBLEMS. Bone on bone in lower back/back pain. Hx Kidney Stone. History of Any Multi-Drug Resistant Organisms: None Reported Past Surgical History: Orthopedic Surgery, Tonsillectomy, Tubal Ligation, Uterine Ablation Additional Past Surgical History / Comment(s): EXCISION OF KIDNEY STONE. UTERINE ABLATION X2. RT KNEE SCOPE X 2, LT KNEE SCOPE, TOTAL RIGHT KNEE ARTHROPLASTY. Past Anesthesia/Blood Transfusion Reactions: No Reported Reaction Past Psychological History: PTSD Smoking Status: Former smoker Past Alcohol Use History: Rare Past Drug Use History: None Reported - Past Family History Father Family Medical History: Cancer Additional Family Medical History / Comment(s): Colon rectal cancer. General Exam Limitations: no limitations General appearance: alert, in no apparent distress Head exam: Present: atraumatic, normocephalic Eye exam: Present: normal appearance, PERRL Neck exam: Present: normal inspection. Absent: tenderness, meningismus Respiratory exam: Present: normal lung sounds bilaterally. Absent: respiratory distress, wheezes Cardiovascular Exam: Present: regular rate, normal rhythm GI/Abdominal exam: Present: soft. Absent: distended, tenderness, guarding, rebound Neurological exam: Present: alert, oriented X3 Psychiatric exam: Present: normal affect, normal mood Skin exam: Present: warm, dry, intact Course Vital Signs 04/16/24 09:42 Temperature 98.2 F Pulse Rate 69 Respiratory 16 Rate Blood Pressure 202/107 Medical Decision Making - Medical Decision Making Was pt. sent in by a medical professional or institution (, PA, ENGINE LATHE SET UP OPERATOR, urgent care, hospital, or fdc...) When possible be specific @ -No Did you speak to anyone other than the patient for history (EMS, parent, family, police, friend...)? What history was obtained from this source @ -No Did you review nursing and triage notes (agree or disagree)? Why? @ -I reviewed and agree with nursing and triage notes Were old charts reviewed (outside hosp., previous admission, EMS record, old EKG, old radiological studies, urgent care reports/EKG's, fdc records)? Report findings @ -No old charts were reviewed Differential Abdominal Pain Women: Appendicitis, Cholecystitis, diverticulosis, ischemic bowel, pancreatitis, hepatitis, UTI, gastroenteritis, AAA, incarcerated hernia, bowel obstruction, constipation, inflammatory bowel, hepatitis, peptic ulcer disease, splenic infarction, perforated viscus, vulvitis, ovarian torsion, PID, kidney stone, placenta abruption, this is not meant to be an all-inclusive list EKG interpreted by me (3pts min.). @ -As above X-rays interpreted by me (1pt min.). @ -None done CT interpreted by me (1pt min.). @ -CT abdomen pelvis shows right-sided hydronephrosis with a proximal 7 mm oblong stone in the right ureter U/S interpreted by me (1pt. min.). @ -None done What testing was considered but not performed or refused? (CT, X-rays, U/S, labs)? Why? @ -None What meds were considered but not given or refused? Why? @ -None Did you discuss the management of the patient with other professionals (professionals i.e. , PA, ENGINE LATHE SET UP OPERATOR, lab, RT, psych nurse, group social worker, it support manager, teacher, executive vice president and chief operating officer, therapeutic case manager)? Give summary @ -No Was smoking cessation discussed for >3mins.? @ -No Was critical care preformed (if so, how long)? @ -No Were there social determinants of health that impacted care today? How? (Homelessness, low income, unemployed, alcoholism, drug addiction, transportation, low edu. Level, literacy, decrease access to med. care, long term, rehab)? @ -No Was there de-escalation of care discussed even if they declined (Discuss DNR or withdrawal of care, Hospice)? DNR status @ -No What co-morbidities impacted this encounter? (DM, HTN, Smoking, COPD, CAD, Cancer, CVA, ARF, Chemo, Hep., AIDS, mental health diagnosis, sleep apnea, morbid obesity)? @Remote history of kidney stone Was patient admitted / discharged? Hospital course, mention meds given and route, prescriptions, significant lab abnormalities, going to OR and other pertinent info. @ -59-year-old female presenting for evaluation of right flank pain. History s uggestive of renal colic. She has a normal CBC, normal CMP,, urinalysis is hemorrhagic with greater than [address] confirms a proximal 7 mm stone in the right ureter with hydronephrosis. The patient's pain is controlled while in the emergency department. She is prescribed pain medications and Flomax and given urology follow-up. Undiagnosed new problem with uncertain prognosis? @ -No Drug Therapy requiring intensive monitoring for toxicity (Heparin, Nitro, Insulin, Cardizem)? @ -No Were any procedures done? @ -No Diagnosis/symptom? @ -Kidney stone, renal colic Acute, or Chronic, or Acute on Chronic? @ -Acute Uncomplicated (without systemic symptoms) or Complicated (systemic symptoms)? @ -Default Side effects of treatment? @ -No Exacerbation, Progression, or Severe Exacerbation? @ -No Poses a threat to life or bodily function? How? (Chest pain, [place], [place], pneumonia, PE, COPD, DKA, ARF, appy, cholecystitis, CVA, Diverticulitis, Homicidal, Suicidal, threat to staff... and all critical care pts) @ -No - Lab Data Result diagrams: 04/16/24 10:07 04/16/24 10:07 Lab Results 04/16/24 04/16/24 04/16/24 Range/Units 10:07 10:07 10:07 WBC 7.0 (3.8-10.6) k/uL RBC 4.41 (3.80-5.40) m/uL Hgb 13.6 (11.4-16.0) gm/dL Hct 42.2 (34.0-46.0) % MCV 95.7 (80.0-100.0) fL MCH 30.9 (25.0-35.0) pg MCHC 32.3 (31.0-37.0) g/dL RDW 13.3 (11.5-15.5) % Plt Count 285 (150-450) k/uL MPV 8.5 Neutrophils % 75 % Lymphocytes % 16 % Monocytes % 5 % Eosinophils % 2 % Basophils % 1 % Neutrophils # 5.2 (1.3-7.7) k/uL Lymphocytes # 1.1 (1.0-4.8) k/uL Monocytes # 0.3 (0-1.0) k/uL Eosinophils # 0.1 (0-0.7) k/uL Basophils # 0.0 (0-0.2) k/uL Sodium 141 (137-145) mmol/L Potassium 4.2 (3.5-5.1) mmol/L Chloride 109 H (98-107) mmol/L Carbon Dioxide 27 (22-30) mmol/L Anion Gap 5 mmol/L BUN 18 H (7-17) mg/dL Creatinine 0.66 (0.52-1.04) mg/dL Est GFR (CKD-EPI)AfAm >90 (>60 ml/min/1.73 sqM) Est GFR (CKD-EPI)NonAf >90 (>60 ml/min/1.73 sqM) Glucose 98 (74-99) mg/dL Calcium 9.0 (8.4-10.2) mg/dL Total Bilirubin 0.3 (0.2-1.3) mg/dL AST 21 (14-36) U/L ALT 15 (4-34) U/L Alkaline Phosphatase 111 (38-126) U/L Total Protein 6.9 (6.3-8.2) g/dL Albumin 4.1 (3.5-5.0) g/dL Lipase 65 (23-300) U/L Urine Color Light Yellow Urine Appearance Cloudy H (Clear) Urine pH 5.0 (5.0-8.0) Ur Specific [place] 1.015 (1.001-1.035) Urine Protein Trace H (Negative) Urine Glucose (UA) Negative (Negative) Urine Ketones Negative (Negative) Urine Blood Large H (Negative) Urine Nitrite Negative (Negative) Urine Bilirubin Negative (Negative) Urine Urobilinogen <2.0 (<2.0) mg/dL Ur Leukocyte Esterase Negative (Negative) Urine RBC >182 H (0-5) /hpf Urine WBC 3 (0-5) /hpf Ur Squamous Epith Cells <1 (0-4) /hpf Urine Bacteria Rare H (None) /hpf Disposition Clinical Impression: Calculus of kidney, Renal colic on right side Disposition: HOME SELF-CARE Instructions (If sedation given, give patient instructions): Renal Colic (ED), Abdominal Pain (ED) Prescriptions: Tamsulosin [Flomax] 0.4 mg PO DAILY #7 cap Ibuprofen [Motrin] 600 mg PO Q8HR PRN #24 tab PRN Reason: Pain HYDROcodone/APAP 5-325MG [[place] 5-325] 1 tab PO Q6HR PRN #12 tab PRN Reason: Pain Is patient prescribed a controlled substance at d/c from ED?: No Referrals: Alpesh Carter MD [Primary Care Provider] - 1-2 days Mulugeta Carr MD [STAFF PHYSICIAN] - 1-2 days Time of Disposition: 11:03
[2024-04-16] MEDS: KETOROLAC 15 MG/ML 1 ML VIAL IVP STA (10:12)
[2024-04-16] MEDS: SODIUM CHLORIDE 0.9% 1,000 ML IV STA (10:13)
[2024-04-16 10:29] LABS: Basophils % (A) 1 %; Eosinophils # (A) 0.1 k/uL (0-0.7); Eosinophils % (A) 2 %; HCT 42.2 % (34.0-46.0); HGB 13.6 gm/dL (11.4-16.0); Lymphocytes # (A) 1.1 k/uL (1.0-4.8); Lymphocytes % (A) 16 %; MCH 30.9 pg (25.0-35.0); MCHC 32.3 g/dL (31.0-37.0); MCV 95.7 fL (80.0-100.0); Mean Platelet Volume 8.5; Monocytes # (A) 0.3 k/uL (0-1.0); Monocytes % (A) 5 %; Neutrophils # (A) 5.2 k/uL (1.3-7.7); Neutrophils % (A) 75 %; Platelet Count 285 k/uL (150-450); RBC 4.41 m/uL (3.80-5.40); RDW 13.3 % (11.5-15.5)
[2024-04-16 10:33] LABS: ALT 15 U/L (4-34); AST 21 U/L (14-36); African American GFR (CKD) >90 (>60 ml/min/1.73 sqM); Albumin 4.1 g/dL (3.5-5.0); Alkaline Phosphatase 111 U/L (38-126); Anion Gap 5 mmol/L; Blood Urea Nitrogen 18 mg/dL (7-17); Carbon Dioxide 27 mmol/L (22-30); Chloride 109 mmol/L (98-107); Glucose 98 mg/dL (74-99); Lipase 65 U/L (23-300); Non-African American GFR(CKD) >90 (>60 ml/min/1.73 sqM); Potassium 4.2 mmol/L (3.5-5.1); Sodium 141 mmol/L (137-145); Total Bilirubin 0.3 mg/dL (0.2-1.3); Total Protein 6.9 g/dL (6.3-8.2)
[2024-04-16 10:45] LABS: Appearance,Urine Cloudy (Clear); Bacteria,Urine Rare /hpf; Bilirubin,Urine Negative (Negative); Blood,Urine Large (Negative); Color,Urine Light Yellow; Glucose,Urine (UA) Negative (Negative); Ketones,Urine Negative (Negative); Leukocyte Esterase,Urine Negative (Negative); Nitrite,Urine Negative (Negative); Protein,Urine Trace (Negative); RBC,Urine >182 /hpf (0-5); Specific Gravity,Urine 1.015 (1.001-1.035); Squamous Epithelial Cell,Urine <1 /hpf (0-4); Urobilinogen,Urine <2.0 mg/dL (<2.0); WBC,Urine 3 /hpf (0-5)
--- NOTE | 2024-04-16 10:58 | CT ---
EXAMINATION TYPE: CT abdomen pelvis wo con CT DLP: 1233.4 mGycm, Automated exposure control for dose reduction was used. DATE OF EXAM: 04/16/2024 10:37 AM COMPARISON: None. CLINICAL INDICATION:Female, 59 years old with history of Right flank pain; TECHNIQUE: Axial CT abdomen pelvis wo con;Sagittal and coronal reformats were created on a separate workstation. Contrast used: mL of , (none if empty) Oral contrast used: without Oral Contrast (none if empty) FINDINGS: LOWER CHEST: Unremarkable ABDOMEN LIVER: Unremarkable GALLBLADDER AND BILE DUCTS: Multiple gallstones are seen in the gallbladder lumen. PANCREAS: Unremarkable. Lipomatous atrophy changes of the pancreatic head and uncinate process. SPLEEN: Unremarkable. ADRENAL GLANDS: Unremarkable. KIDNEYS AND URETERS: Mild right hydronephrosis secondary obstructing 7 mm calculus at the ureteropelv ic junction. No additional right renal calculi. No left renal calculi. No left hydronephrosis. PELVIS BLADDER: Unremarkable REPRODUCTIVE: Unremarkable. ABDOMEN & PELVIS STOMACH AND BOWEL: No evidence of bowel obstruction. Appendix is normal.7 PERITONEUM/RETROPERITONEUM: No evidence of pneumoperitoneum or free fluid. VASCULATURE: No evidence of aortic aneurysm. MUSCULOSKELETAL: No acute osseous abnormalities LYMPH NODES: No gross evidence for lymphadenopathy. SOFT TISSUE/ABDOMINAL WALL: Fat-containing umbilical hernia. IMPRESSION: 1. Mild right hydronephrosis secondary obstructing 7 mm calculus at the ureteropelvic junction. 2. Cholelithiasis.
[2024-04-16 11:09] VITALS: RESP 16
[2024-04-16 11:58] VITALS: BP 144/99; PULSE 65; TEMP 98.8
== END 2024-04-16 11:28 | disposition home or self-care (01) ==
LOC: EC 09:40
DX: N13.2 Hydronephrosis with renal and ureteral calculous obstruction (principal); Z91.09 Other allergy status, other than to drugs and biological substances; Z88.8 Allergy status to other drugs, medicaments and biological substances; Z87.891 Personal history of nicotine dependence
CPT/HCPCS: 96374; 96361; 99284 ×2; 36415; 80053; 83690; 85025; 81001; 74176; J1885

== ENCOUNTER 2024-04-26 05:57 | Day surgery (SDC) | payer MEDICARE, BC ==
--- NOTE | 2024-04-25 18:04 | P.GSHP ---
History of Present Illness H&P Date: 04/25/24 Chief Complaint: Right flank pain The patient is a 59-year-old white female with a history of calcium oxalate monohydrate urolithiasis. She has previously undergone ureteroscopic removal of the calculus. She has experienced right flank discomfort since October 2023. Recent CT scan shows mild right hydronephrosis due to a 7 mm right proximal ureteral calculus. - Constitutional Constitutional: Denies chills, Denies fever - Gastrointestinal Gastrointestinal: Reports nausea, Reports vomiting - Genitourinary (Female) Genitourinary: Reports flank pain, Reports kidney stones, Denies hematuria Past Medical History Past Medical History: Hyperlipidemia, Musculoskeletal Disorder, Osteoarthritis (OA), Thyroid Disorder Additional Past Medical History / Comment(s): TINNITIS. PHI DISORDER, RT KNEE INJURY, Bone on bone in lower back/back pain, kidney stone History of Any Multi-Drug Resistant Organisms: None Reported Past Surgical History: Orthopedic Surgery, Tonsillectomy, Tubal Ligation, Uterine Ablation Additional Past Surgical History / Comment(s): lithotripsy,UTERINE ABLATION X2. RT KNEE SCOPE X 2, LT KNEE SCOPE, Rt. TKA, Lt. CTR, colonoscopy Past Anesthesia/Blood Transfusion Reactions: No Reported Reaction Smoking Status: Former smoker - Past Family History Father Family Medical History: Cancer Additional Family Medical History / Comment(s): Colon rectal cancer. Medications and Allergies Home Medications Medication Instructions Recorded Confirmed Type Cholecalciferol [Vitamin D3 (25 5,000 unit PO DAILY 08/19/17 04/25/24 History Mcg = 1000 Iu)] Multivitamins, Thera [Multivitamin 1 tab PO DAILY 08/19/17 04/25/24 History (formulary)] HYDROcodone/APAP 5-325MG [[place] 1 tab PO Q6HR PRN #12 tab 04/16/24 04/25/24 Rx 5-325] Ibuprofen [Motrin] 600 mg PO Q8HR PRN #24 tab 04/16/24 04/25/24 Rx Levothyroxine Sodium [Unithroid] 100 mcg PO QAM 04/25/24 04/25/24 History Tamsulosin [Flomax] 0.4 mg PO QAM 04/25/24 04/25/24 History Allergies Allergy/AdvReac Type Severity Reaction Status Date / Time adhesive Allergy Rash/Hives Verified 04/25/24 12:19 silicone AdvReac Itching Verified 04/25/24 12:19 Surgical - Exam - General well developed, well nourished, no distress - Respiratory normal respiratory effort - Abdomen Abdomen: soft, non tender, no guarding, no rigid, no rebound - Psychiatric oriented to time, oriented to person, oriented to place, speech is normal, memory intact Results - Imaging CT scan - abdomen: report reviewed, image reviewed Assessment and Plan (1) Calculus of ureter Status: Acute Code(s): N20.1 - CALCULUS OF URETER SNOMED Code(s): 56489116 Plan: Cystoscopy, right retrograde pyelogram, right ureteroscopy with Holmium laser lithotripsy and stone basketing, right ureteral stent insertion. The procedure has been reviewed in detail with the patient. She has been made aware of p otential risks, which include anesthesia, bleeding, infection, ureteral injury, and inability to remove the calculus.
--- NOTE | 2024-04-26 06:34 | XR ---
EXAMINATION TYPE: XR KUB DATE OF EXAM: 04/26/2024 6:15 AM CLINICAL HISTORY: Right ureteric calculus. TECHNIQUE: Two supine KUB images of the abdomen are obtained. COMPARISON: CT abdomen and pelvis April 16, 2024. FINDINGS: Stable 6 mm proximal right ureter calculus. Scattered small bilateral pelvic phleboliths re demonstrated. Overall nonobstructive bowel gas pattern. Osseous structures are intact. IMPRESSION: As above.
[2024-04-26] MEDS ORDERED: LIDOCAINE 1% (10MG/ML) FOR IV START INTRADERMA PRN (06:41)
[2024-04-26] MEDS ORDERED: METOCLOPRAMIDE 5 MG/ML 2 ML VIAL IVP PRN (07:00)
[2024-04-26] MEDS ORDERED: fentaNYL (PF) 50 MCG/ML 2 ML AMP IV PRN (07:00)
[2024-04-26] MEDS ORDERED: HYDROmorphone 0.5 MG/0.5 ML SYRINGE IVP PRN (07:00)
[2024-04-26] MEDS: LACTATED RINGERS 1,000 ML IV SCH (07:15)
[2024-04-26] MEDS: IV FLUID CONTINUATION 1,000 ML IV ONE (07:15)
[2024-04-26] MEDS: DEXAMETHASONE SOD PHOSPHATE 4 MG/ML 1 ML VIAL IV ONE (07:21)
[2024-04-26] MEDS: ONDANSETRON 4 MG/2 ML VIAL IVP ONE (07:21)
[2024-04-26] MEDS ORDERED: fentaNYL (PF) 50 MCG/ML 2 ML AMP ONE (07:30)
[2024-04-26] MEDS ORDERED: PHENYLEPHRINE 10 MG/ML VIAL ONE (07:30)
[2024-04-26] MEDS ORDERED: PROPOFOL 10 MG/ML 20 ML VIAL IV ONE (07:30)
[2024-04-26] MEDS ORDERED: KETAMINE HCL IN 0.9 % NACL 50 MG/5 ML SYRINGE ONE (07:30)
[2024-04-26] MEDS ORDERED: LIDOCAINE 1% INJ 10MG/ML (20 ML MDV) ONE (07:30)
[2024-04-26] MEDS ORDERED: MIDAZOLAM 2 MG/2 ML VIAL ONE (07:30)
--- NOTE | 2024-04-26 08:34 | P.OP ---
Date of Procedure: 04/26/24 Preoperative Diagnosis: Right ureteral calculus Postoperative Diagnosis: Same Procedure(s) Performed: Cystoscopy, right ureteroscopy with Holmium laser lithotripsy and stone basketing, right ureteral stent insertion Anesthesia: ONEYDA Surgeon: Mulugeta Carr Estimated Blood Loss (ml): 10 IV fluids (ml): 400 Pathology: other (Right ureteral calculus fragments, sent for chemical analysis) Condition: stable Disposition: PACU Indications for Procedure: The patient is a 59-year-old white female with a history of calcium oxalate monohydrate urolithiasis. She has previously undergone ureteroscopic removal of the calculus. She has experienced right flank discomfort since October 2023. Recent CT scan shows mild right hydronephrosis due to a 7 mm right proximal ureteral calculus. Operative Findings: Right proximal ureteral calculus, fragmented and removed completely. Description of Procedure: The patient was taken to the operating room and placed in the dorsolithotomy position, with legs supported in Pedro stirrups. The external genitalia was prepped and draped sterilely. The 30 lens was used to introduce the 21-B[place]udian Castañeda cystoscopic sheath through the urethra and into the bladder under direct vision. The bladder was examined in its entirety. Both ureteral orifices were normal anatomic location and configuration. No tumors or foreign bodies were seen. A 0.038 inch Glidewire was passed through the cystoscope. The right ureteral orifice was cannulated, and the Glidewire was advanced up to the renal pelvis. The cystoscope was removed, and an 11/13-B[place]udian ureteral access catheter was passed over the wire, up to the proximal ureter. The Castañeda Boa flexible ureteroscope was then passed through the ureteral access catheter sheath, up to the stone which was located within the right proximal ureter at the UPJ. The 272 micron Holmium laser probe was passed through the ureteroscope, and lithotripsy was performed utilizing a dusting mode. Ultimately, the calculus refluxed into an upper pole calyx, where lithotripsy was completed. After dusting the periphery of the calculus, the core of the calculus was fragmented and each fragment was removed using a 1.9 [place] 0 tip nitinol basket. All calculus fragments were removed. Pullout ureteroscopy showed no evidence of ureteral trauma. The Glidewire was left in place, and backloaded into the cystoscope, which was passed into the bladder. A 24 cm, 4.8 [place] double-J ureteral stent was placed over the wire. Proper stent positioning was verified fluoroscopically and endoscopically. The bladder was emptied and the cystoscope removed. The patient tolerated the procedure well and was taken to the recovery room in stable condition. SOULEYMANE HAWKINSLata Report: Procedure Acuity: Semi-Urgent Stone Size and Location: 5 x 8 mm, right proximal ureter Ureteral Dilation: No Ureteral Access Sheath Used: Yes Stone Sent for Analysis: Yes All Stones/Fragments Were Removed with a Basket: Yes Complications: No Preoperative Antibiotics Given: Yes Stent Placed: Yes If Stent Placed, Was String Left Attached: No If Stent Placed, When is it to be Removed: 1 week Discharge Medications: Tamsulosin, Toradol
[2024-04-26 08:38] VITALS: TEMP 97.6
[2024-04-26 08:54] VITALS: RESP 16
--- NOTE | 2024-04-26 08:59 | FL ---
EXAMINATION TYPE: FL guidance operating room Intraoperative/procedural fluoroscopic services were pro vided. Total fluoroscopy time is 3.7 seconds with a total of 2 submitted images to PACS. Please see t he operative/procedural note for further details. DAP: [id number] mGym2
[2024-04-26 09:55] VITALS: BP 162/92; PULSE 70
== END 2024-04-26 10:18 | disposition home or self-care (01) ==
LOC: OR 05:57
PROVIDERS: ATTEND Urology
DX: N20.1 Calculus of ureter (principal); E78.5 Hyperlipidemia, unspecified; M19.90 Unspecified osteoarthritis, unspecified site; Z79.890 Hormone replacement therapy; Z80.0 Family history of malignant neoplasm of digestive organs; Z87.891 Personal history of nicotine dependence; Z98.51 Tubal ligation status
CPT/HCPCS: 52356; 82365; 74018; C2625; C1758; C1769; J2250; J1100; J0690; J2405; J2001; J3010; J2704; J2371

== ENCOUNTER 2024-05-01 02:32 | Emergency (ER) | payer MEDICARE, BC ==
[2024-05-01 02:39] VITALS: TEMP 97.6
--- NOTE | 2024-05-01 02:48 | ED ---
Female Urogenital HPI - General Chief complaint: Urogenital Stated complaint: Painful Urination, Right Side Pain Time Seen by Provider: 05/01/24 02:40 Source: patient, RN notes reviewed Mode of arrival: ambulatory Limitations: no limitations - History of Present Illness Initial comments: 59-year-old female presenting to the ED with complaint of dysuria. Patient had right ureteroscopy with holmium laser lithotripsy and stent insertion on 04/26/[address] Carr. Patient had a right centimeter proximal ureteral calculus removed with stent placed. Has not had stent taken out yet. Since then patient notes that she has had some abdominal/flank pain which is not necessarily worsened. However today onset of dysuria. No worsening hematuria. No fever or chills. No other complaints at this time. - Related Data Home Medications Medication Instructions Recorded Confirmed Cholecalciferol [Vitamin D3 (25 5,000 unit PO DAILY 08/19/17 04/25/24 Mcg = 1000 Iu)] Multivitamins, Thera [Multivitamin 1 tab PO DAILY 08/19/17 04/25/24 (formulary)] Levothyroxine Sodium [Unithroid] 100 mcg PO QAM 04/25/24 04/25/24 Tamsulosin [Flomax] 0.4 mg PO QAM 04/25/24 04/25/24 Previous Rx's Medication Instructions Recorded HYDROcodone/APAP 5-325MG [[place] 1 tab PO Q6HR PRN #12 tab 04/16/24 5-325] Ibuprofen [Motrin] 600 mg PO Q8HR PRN #24 tab 04/16/24 Ketorolac [Toradol] 10 mg PO Q6HR PRN #10 tab 04/26/24 Sulfamethox-Tmp 800-160Mg [Bactrim 1 each PO Q12HR 14 Days #28 tab 05/01/24 Ds] Allergies Allergy/AdvReac Type Severity Reaction Status Date / Time adhesive Allergy Rash/Hives Verified 05/01/24 02:38 silicone AdvReac Itching Verified 05/01/24 02:38 Review of Systems ROS Statement: Those systems with pertinent positive or pertinent negative responses have been documented in the HPI. ROS Other: All systems not noted in ROS Statement are negative. Past Medical History Past Medical History: Hyperlipidemia, Musculoskeletal Disorder, Osteoarthritis (OA), Thyroid Disorder Additional Past Medical History / Comment(s): TINNITIS. PHI DISORDER, RT KNEE INJURY, Bone on bone in lower back/back pain, kidney stone History of Any Multi-Drug Resistant Organisms: None Reported Past Surgical History: Orthopedic Surgery, Tonsillectomy, Tubal Ligation, Uterine Ablation Additional Past Surgical History / Comment(s): lithotripsy,UTERINE ABLATION X2. RT KNEE SCOPE X 2, LT KNEE SCOPE, Rt. TKA, Lt. CTR, colonoscopy Past Anesthesia/Blood Transfusion Reactions: No Reported Reaction Past Psychological History: PTSD Smoking Status: Former smoker Past Alcohol Use History: Rare Past Drug Use History: None Reported - Past Family History Father Family Medical History: Cancer Additional Family Medical History / Comment(s): Colon rectal cancer. General Exam Limitations: no limitations General appearance: alert, in no apparent distress Eye exam: Present: normal appearance Neck exam: Present: normal inspection Respiratory exam: Present: normal lung sounds bilaterally Cardiovascular Exam: Present: regular rate GI/Abdominal exam: Present: soft (No significant tenderness to palpation. No rebound guarding or rigidity. No significant tenderness to percussion of CVA bilaterally.) Neurological exam: Present: alert, oriented X3 Skin exam: Present: warm, dry Course Vital Signs 05/01/24 02:35 Temperature 97.6 F Pulse Rate 83 Respiratory 18 Rate Blood Pressure 163/93 O2 Sat by Pulse 99 Oximetry Medical Decision Making - Medical Decision Making Was pt. sent in by a medical professional or institution (RACQUEL Delgado, ADMITTING REPRESENTATIVE, urgent care, hospital, or [facility]...) When possible be specific @ -No Did you speak to anyone other than the patient for history (EMS, parent, family, police, friend...)? What history was obtained from this source @ -No Did you review nursing and triage notes (agree or disagree)? Why? @ -I reviewed and agree with nursing and triage notes Were old charts reviewed (outside hosp., previous admission, EMS record, old EKG, old radiological studies, urgent care reports/EKG's, [facility] records)? Report findings @ -No old charts were reviewed Differential Diagnosis (chest pain, altered mental status, abdominal pain women, abdominal pain men, vaginal bleeding, weakness, fever, dyspnea, syncope, headache, dizziness, GI bleed, back pain, seizure, CVA, palpatations, mental health, musculoskeletal)? @ -Differential Abdominal Pain Women: Appendicitis, Cholecystitis, diverticulosis, ischemic bowel, pancreatitis, hepatitis, UTI, gastroenteritis, AAA, incarcerated hernia, bowel obstruction, constipation, inflammatory bowel, hepatitis, peptic ulcer disease, splenic infarction, perforated viscus, vulvitis, ovarian torsion, PID, kidney stone, placenta abruption, this is not meant to be an all-inclusive list EKG interpreted by me (3pts min.). @ -None X-rays interpreted by me (1pt min.). @ -KUB interpreted me which revealed no evidence of acute finding. CT interpreted by me (1pt min.). @ -None done U/S interpreted by me (1pt. min.). @ -None done What testing was considered but not performed or refused? (CT, X-rays, U/S, labs)? Why? @ -None What meds were considered but not given or refused? Why? @ -None Did you discuss the management of the patient with other professionals (professionals i.e. , PA, ADMITTING REPRESENTATIVE, lab, RT, psych nurse, director social service, clerical coordinator, teacher, commissioned defence force officer, case monitor)? Give summary @ -No Was smoking cessation discussed for >3mins.? @ -No Was critical care preformed (if so, how long)? @ -No Were there social determinants of health that impacted care today? How? (Homelessness, low income, unemployed, alcoholism, drug addiction, transportation, low edu. Level, literacy, decrease access to med. care, senior living, rehab)? @ -No Was there de-escalation of care discussed even if they declined (Discuss DNR or withdrawal of care, Hospice)? DNR status @ -No What co-morbidities impacted this encounter? (DM, HTN, Smoking, COPD, CAD, Cancer, CVA, ARF, Chemo, Hep., AIDS, mental health diagnosis, sleep apnea, morbid obesity)? @ -None Was patient admitted / discharged? Hospital course, mention meds given and route, prescriptions, significant lab abnormalities, going to OR and other pertinent info. @ -Discharge 59-year-old female recently had right lithotripsy on 04/26/2024 and had stent placed following presenting to the ED with complaints of burning with urination onset today. Laboratory studies reviewed. UA does show evidence of infection. Vital signs stable afebrile. Urine culture was obtained. Provided dose of ceftriaxone here and discharged home with Bactrim. Advise close follow-up with her urologist as scheduled. Discussed strict return precautions with patient verbalized agreement. Undiagnosed new problem with uncertain prognosis? @ -No Drug Therapy requiring intensive monitoring for toxicity (Heparin, Nitro, Insulin, Cardizem)? @ -No Were any procedures done? @ -No Diagnosis/symptom? @ -Urinary tract infection Acute, or Chronic, or Acute on Chronic? @ -Acute Uncomplicated (without systemic symptoms) or Complicated (systemic symptoms)? @ -Uncomplicated Side effects of treatment? @ -No Exacerbation, Progression, or Severe Exacerbation? @ -No Poses a threat to life or bodily function? How? (Chest pain, [place], [place], pneumonia, PE, COPD, DKA, ARF, appy, cholecystitis, CVA, Diverticulitis, Homicidal, Suicidal, threat to staff... and all critical care pts) @ -No - Lab Data Lab Results 05/01/24 Range/Units 02:47 Urine Color Red Urine Appearance Turbid H (Clear) Urine pH 6.5 (5.0-8.0) Ur Specific [place] 1.020 (1.001-1.035) Urine Protein 2+ H (Negative) Urine Glucose (UA) Trace H (Negative) Urine Ketones Negative (Negative) Urine Blood Large H (Negative) Urine Nitrite Negative (Negative) Urine Bilirubin Negative (Negative) Urine Urobilinogen <2.0 (<2.0) mg/dL Ur Leukocyte Esterase Moderate H (Negative) Urine RBC >182 H (0-5) /hpf Urine WBC 41 H (0-5) /hpf Ur Squamous Epith Cells 2 (0-4) /hpf Urine Bacteria Rare H (None) /hpf Disposition Clinical Impression: UTI (urinary tract infection) Disposition: HOME SELF-CARE Condition: Good Instructions (If sedation given, give patient instructions): Urinary Tract Infection in Women (ED) Additional Instructions: Please return to the Emergency Department if symptoms worsen or any other concerns. Please follow-up with your urologist. Prescriptions: Sulfamethox-Tmp 800-160Mg [Bactrim Ds] 1 each PO Q12HR 14 Days #28 tab Is patient prescribed a controlled substance at d/c from ED?: No Referrals: Alpesh Carter MD [Primary Care Provider] - 1-2 days Time of Disposition: 04:09
[2024-05-01] MEDS: SODIUM CHLORIDE 0.9% 1,000 ML IV STA (02:58)
[2024-05-01] MEDS: KETOROLAC 15 MG/ML 1 ML VIAL IVP STA (02:58)
[2024-05-01] MEDS: ONDANSETRON 4 MG/2 ML VIAL IVP STA (02:58)
[2024-05-01 03:08] LABS: Appearance,Urine Turbid (Clear); Bacteria,Urine Rare /hpf; Bilirubin,Urine Negative (Negative); Blood,Urine Large (Negative); Color,Urine Red; Glucose,Urine (UA) Trace (Negative); Ketones,Urine Negative (Negative); Leukocyte Esterase,Urine Moderate (Negative); Nitrite,Urine Negative (Negative); PH, Urine 6.5 (5.0-8.0); Protein,Urine 2+ (Negative); RBC,Urine >182 /hpf (0-5); Squamous Epithelial Cell,Urine 2 /hpf (0-4); Urobilinogen,Urine <2.0 mg/dL (<2.0); WBC,Urine 41 /hpf (0-5)
--- NOTE | 2024-05-01 03:57 | XR ---
EXAM: XR Abdomen, 1 View CLINICAL HISTORY: ITS.REASON XR Reason: r ureteral stent TECHNIQUE: Frontal supine view of the abdomen/pelvis. COMPARISON: No relevant prior studies available. FINDINGS: Right ureteral stent in place. IMPRESSION: Right ureteral stent in place.
[2024-05-01] MEDS: cefTRIAXone IN SWFI 1,000 MG/10 ML SYRINGE IVP STA (04:19)
[2024-05-01 04:24] VITALS: BP 154/75; PULSE 66; RESP 16
== END 2024-05-01 04:23 | disposition home or self-care (01) ==
LOC: EC 02:32
DX: N39.0 Urinary tract infection, site not specified (principal); Z87.891 Personal history of nicotine dependence; Z91.040 Latex allergy status; Z91.048 Other nonmedicinal substance allergy status
CPT/HCPCS: 81001; 87086; 74018; 99284; 96374; 96375 ×2; 96361; J2405; J0696; J1885

== ENCOUNTER → 2024-05-02 | Outpatient (CLI) | payer MEDICARE, BC ==
--- NOTE | 2024-05-02 16:00 | US ---
EXAMINATION TYPE: US carotid duplex BILAT DATE OF EXAM: 05/02/2024 COMPARISON: NONE CLINICAL INDICATION: Female, 59 years old with history of H53.9 VISUAL DISTURBANCE; No HTN, no hx tia or stroke. Pt states having vision issues. TECHNIQUE: Carotid duplex ultrasound examination. Indirect Doppler criteria was utilized. FINDINGS: EXAM MEASUREMENTS: RIGHT: Peak Systolic Velocity (PSV) cm/sec ----- Right CCA: 72.1 ----- Right ICA: 112.4 ----- Right ECA: 94.3 ICA/CCA ratio: 1.6 RIGHT: End Diastole cm/sec ----- Right CCA: 17.1 ----- Right ICA: 44.6 ----- Right ECA: 7.6 LEFT: Peak Systolic Velocity (PSV) cm/sec ----- Left CCA: 104.3 ----- Left ICA: 94.3 ----- Left ECA: 125.3 ICA/CCA ratio: 0.9 LEFT: End Diastole cm/sec ----- Left CCA: 22.8 ----- Left ICA: 28.3 ----- Left ECA: 13.9 VERTEBRALS (direction of flow): Right Vertebral: Antegrade Left Vertebral: Antegrade Rhythm: Normal TRIM LINE WORKER NOTES: No plaque or elevated velocities. No wall thickening. IMPRESSION: No ultrasound evidence for hemodynamically significant stenosis of the bilateral visualized carotid a rterial systems. Criteria for Assigning % of Stenosis / Diameter reduction (Estimation based on the indirect measurements of the internal carotid artery velocities (ICA PSV). 1. Normal (no stenosis)=ICA PSV < 125 cm/s: ratio < 2.0: ICA EDV<40 cm/s. 2. Less than 50% stenosis=ICA PSV < 125 cm/s: ratio < 2.0: ICA EDV<40 cm/s. 3. 50 to 69% stenosis=ICA PSV of 125 to 230 cm/s: ration 2.0 ? 4.0: ICA EDV 40-100 cm/s. 4. Greater than 70% stenosis to near occlusion= ICA PSV > 230 cm/s: ratio > 4.0: ICA EDV > 100 cm/s. 5. Near occlusion= ICA PSV velocities may be low or undetectable: variable ratio and ICA EDV. 6. Total occlusion=unable to detect flow.
== END | disposition home or self-care (01) ==
LOC: RADUSWWP 14:18
PROVIDERS: ATTEND Family Medicine
DX: H53.9 Unspecified visual disturbance (principal)
CPT/HCPCS: 93880

== ENCOUNTER → 2024-06-04 | Outpatient (CLI) | payer MEDICARE, BC ==
--- NOTE | 2024-06-04 12:21 | US ---
EXAMINATION TYPE: US kidneys/renal and bladder DATE OF EXAM: 06/04/2024 COMPARISON: CT: 04/16/24 CLINICAL INDICATION: Female, 59 years old with history of N13.2 HYDRONEPHROSIS WITH RENAL AND URETERA L CALCU; hx of right renal stone. Pt had lithotripsy and stent placed. Stent is now removed EXAM MEASUREMENTS: Right Kidney: 11.1 x 5.0 x 4.6 cm Left Kidney: 9.6 x 4.2 x 5.1 cm Right Kidney: No hydronephrosis or masses seen Left Kidney: No hydronephrosis or masses seen Bladder: wnl Bilateral Jets seen: Yes There is no evidence for hydronephrosis at this point in time. No nephrolithiasis is seen. No sammy s are identified. The urinary bladder is anechoic. Bilateral ureteral jets are seen. IMPRESSION: Unremarkable study
== END | disposition home or self-care (01) ==
LOC: RADUSWWP 10:20
PROVIDERS: ATTEND Urology
DX: N13.2 Hydronephrosis with renal and ureteral calculous obstruction (principal)
CPT/HCPCS: 76770

== ENCOUNTER → 2024-09-19 | Outpatient (CLI) | payer MEDICARE, BC ==
--- NOTE | 2024-09-20 10:40 | MM ---
Reason for Exam: Screening (asymptomatic). Last screening mammogram was performed 12 month(s) ago. Patient History: Menarche at age 11. First Full-Term at age 19. Postmenopausal. 12/30/2020, Benign Core Biopsy on the left side. 09/25/2020, High risk Core Biopsy on the left side. Risk Values: Elizabeth 5 year model risk: 1.9%. NCI Lifetime model risk: 9.7%. Prior Study Comparison: 08/25/2021 Bilateral Screening Mammogram, [facility]. 08/31/2022 Bilateral MG 3D screening mammo w/cad, [facility]. 09/01/2023 Bilateral MG 3D screening mammo w/cad, [facility]. Tissue Density: There are scattered areas of fibroglandular density. Findings: Analyzed By CAD. Postexcisional changes redemonstrated medial left breast. Asymmetric density medial anterior left cc view also unchanged. No significant change from prior exams. Overall Assessment: Benign, BI-RAD 2 Management: Screening Mammogram of both breasts in 1 year. . Patient should continue monthly self-breast exams. A clinical breast exam by your physician is recommended on an annual basis. This exam should not preclude additional follow-up of suspicious palpable abnormalities. Note on Elizabeth scores and lifetime risk: 1. A Elizabeth score greater than 3% is considered moderate risk. If this is the case, consider specialist referral to assess eligibility for a risk reducing agent. 2. If overall lifetime risk for the development of breast cancer is 20% or higher, the patient may qualify for future screening with alternating mammogram and breast MRI. [facility], , 09/20/2024 10:38 AM. Electronically signed and approved by: Rachelle Hernandez M.D. Radiologist
== END | disposition home or self-care (01) ==
LOC: RADMAMWWP 07:26
PROVIDERS: ATTEND Surgery
CPT/HCPCS: 77063; 77067